=== PATIENT | female | born 1995 | race Hispanic/Latino ===

== ENCOUNTER 2020-09-19 19:10 | Observation (INO) | payer MEDICAID, OTHER ==
[2020-09-19] MEDS ORDERED: LACTATED RINGERS 1,000 ML IV ONE (19:44)
[2020-09-19 20:01] LABS: Bilirubin,Urine NEG (Negative); Blood,Urine NEG (Negative); Color,Urine Yellow (Yellow); Mucus,Urine 3+ /HPF
[2020-09-19 20:33] LABS: Amphetamine Screen,Urine Negative; Benzodiazepines Screen,Urine Negative; Cannabinoid Screen,Urine Negative; Cocaine Screen,Urine Negative; Methadone Screen,Urine Negative; Opiate Screen,Urine Negative
[2020-09-19] MEDS ORDERED: cefTRIAXone/NS 1 GM/50 ML 1 GM/50 ML BAG IV ONE (21:27)
[2020-09-19] MEDS ORDERED: DOCUSATE SODIUM 100 MG CAP PO ONE (22:15)
[2020-09-19 22:41] LABS: Hematocrit 31.6 % (30.3-42.9); Hemoglobin 10.4 gm/dl (10.1-14.3); Mean Corpuscular HGB Conc 33 % (30-34); Mean Corpuscular Volume 77 fl (79-97); Platelet Count 233 K/mm3 (140-440); Red Cell Distribution Width 13.4 % (13.2-15.2)
[2020-09-19 22:51] LABS: Alanine Aminotransferase 6 units/L (7-56); Blood Urea Nitrogen 6 mg/dL (7-17); Calcium 8.5 mg/dL (8.4-10.2); Hemolysis Index 54
[2020-09-19 22:55] LABS: BUN/Creatinine Ratio 15
[2020-09-19] MEDS ORDERED: LACTATED RINGERS 1,000 ML ONE (23:42)
[2020-09-19] MEDS ORDERED: ACETAMINOPHEN 325 MG TAB PO PRN (23:55)
--- NOTE | 2020-09-20 00:10 | History and Physical Report ---
History of Present Illness Date of examination: 09/20/20 Chief complaint: Admitted for 23 hour observation due to slightly low RACHAEL at 36 weeks gestation. Plan to repeat US in 23 hours and plan is for continuous EFM. Patient also has a probable UTI and is receiving Rocephin. History of present illness: 25 year old female presents to triage with complaint of suprapubic discomfort (denies flank pain). Patient was found not to be in labor. She was started on Rocephin in triage for possible UTI and on Colace for constipation. Patient receives care at [facility] and records are not available. But was able to access some records via computer. LMP 03/2020. EDC 10/17/2020 (by US at 9.5 weeks gestation). significant for the following: irregular FHR (was referred to [facility] per record but patient states she never went and denies any recent problems with irregular FHR), trichomonas (treated and JACK negative), varicella nonimmne, low TSH, vitamin D deficiency (supplemented with vitamin D), and UTI (treated). labs are as follows: O+, antibody screen negative, pap smear negative, rubella immune, RPR nonreactive, hepatitis B surface antigen negative, HIV negative, gonorrhea negative, chlamydia negative, trichomonas positive/negative, AFP negative, panorama low risk, GBS unknown. Past History Past Medical History: no pertinent history Past Surgical History: other (neck surgery as a child (pt. 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 denies: abnormal PAP smear, chlamydia, gonorrhea, hepatitis B, hepatitis C, herpes, HIV, syphilis Family/Genetic History: none Social history: single, lives with family, full code. denies: smoking, alcohol abuse, prescription drug abuse, IV drug use - Obstetrical History Expected Date of Delivery: 10/17/20 Actual Gestation: 36 Week(s) 1 Day(s) : 2 Para: 1 Hx # Term Pregnancies: 1 Number of Pregnancies: 0 Spontaneous Abortions: 0 Induced : 0 Number of Living Children: 1 Medications and Allergies Allergies Allergy/AdvReac Type Severity Reaction Status Date / Time squash Allergy Rash Verified 08/19/16 21:44 Home Medications Medication Instructions Recorded Confirmed Last Taken Type No Known Home Medications [No 08/20/16 08/20/16 Unknown History Reported Home Medications] Active Meds: Active Medications Acetaminophen (Acetaminophen 325 Mg Tab) 650 mg PO Q4H PRN PRN Reason: Pain MILD(1-3)/Fever >100.5/CALVILLO Docusate Sodium (Docusate Sodium 100 Mg Cap) 100 mg PO BID FRANCIE Ceftriaxone Sodium (Rocephin/Ns 1 Gm/50 Ml) 1 gm in 50 mls @ 100 mls/hr IV Q24H FRANCIE; Protocol Multivitamins/Iron/Calcium ( [id number] Fumarate-Folic Acid Vit Tab) 1 each PO QDAY FRANCIE Review of Systems All systems: negative (suprapubic pain, constipation, nausea) - Vital Signs Vital signs: Vital Signs Temp Pulse Resp BP Pulse Ox 99.2 F 109 H 16 133/81 99 09/19/20 19:31 09/19/20 19:31 09/19/20 19:31 09/19/20 19:31 09/19/20 19:31 Temp Pulse Resp BP Pulse Ox 98.8 F 82 16 135/83 100 09/19/20 23:47 09/19/20 23:47 09/19/20 19:31 09/19/20 23:47 09/19/20 23:30 No CVAT bilaterally. - Physical Exam Abdomen: Positive: normal appearance, soft. Negative: distention, tenderness, guarding, rigidity Genitourinary (Female): Positive: normal external genitalia, normal perenium. Negative: perineal/vulvar lesions Vagina: Positive: normal moisture Uterus: Positive: enlarged. Negative: tender Anus/Rectum: Positive: normal perianal skin Extremities: Positive: normal. Negative: tenderness, edema - Obstetrical FHR: category 1 Uterine Contraction Monitor Mode: External Cervical Dilatation: 1 Cervical Effacement Percentage: 50 station: -3 Uterine Contraction Pattern: Irregular Uterine Contraction Intensity: Mild Results Result Diagrams: 09/19/20 22:25 09/19/20 22:25 Abnormal lab results 09/19/20 09/19/20 09/19/20 Range/Units 19:46 22:25 22:25 MCV 77 L (79-97) fl MCH 25 L (28-32) pg Sodium 135 L (137-145) mmol/L Chloride 107.6 H (98-107) mmol/L Carbon Dioxide 18 L (22-30) mmol/L BUN 6 L (7-17) mg/dL Creatinine 0.4 L (0.6-1.2) mg/dL ALT 6 L (7-56) units/L Lactate Dehydrogenase (91-180) units/L Albumin 3.0 L (3.9-5) g/dL Ur Specific [place] 1.032 H (1.003-1.030) Urine WBC (Auto) 63.0 H (0.0-6.0) /HPF 09/19/20 Range/Units 22:25 MCV (79-97) fl MCH (28-32) pg Sodium (137-145) mmol/L Chloride (98-107) mmol/L Carbon Dioxide (22-30) mmol/L BUN (7-17) mg/dL Creatinine (0.6-1.2) mg/dL ALT (7-56) units/L Lactate Dehydrogenase 233 H (91-180) units/L Albumin (3.9-5) g/dL Ur Specific [place] (1.003-1.030) Urine WBC (Auto) (0.0-6.0) /HPF All other labs normal. Assessment and Plan A: at 36 weeks, 1 day gestation. RACHAEL low for gestational age. UTI. Constipation. P: Admit for 23 hour observation. Continuous EFM. Repeat RACHAEL in 23 hours. IV Rocephin for UTI. Urine culture. Colace for constipation. Hydration.
--- NOTE | 2020-09-20 00:53 | Ultrasound Report ---
ULTRASOUND OBSTETRIC LIMITED ULTRASOUND BIOPHYSICAL PROFILE INDICATION / CLINICAL INFORMATION: RACHAEL, check placenta. Clinical Gestational Age (GA) in weeks, days: 36 weeks 0 days TECHNIQUE: Transabdominal. COMPARISON: None available. FINDINGS: BREATHING MOVEMENT = 2 GROSS BODY MOVEMENT = 2 TONE = 2 QUALITATIVE AMNIOTIC FLUID VOLUME = 2 TOTAL BIOPHYSICAL SCORE = 8/8 HEART RATE (beats per minute): 155 AMNIOTIC FLUID INDEX (cm) = 6.3 cm (normal = 7-24 cm) PRESENTATION: Cephalic. ADDITIONAL FINDINGS: Placenta is located anterior/fundal without evidence of abruption, grade 0-1 IMPRESSION: 1. Biophysical Score = 8/8 2. Single viable IUP in a cephalic presentation. 3. RACHAEL is 6.3 cm. This is borderline oligohydramnios. Signer Name: Belinda Chavez MD Signed: 09/20/2020 12:49 AM Workstation Name: [id number]
[2020-09-20] MEDS: ONDANSETRON 4 MG/2 ML INJ IV PRN ×2 (03:59→10:18)
[2020-09-20] MEDS ORDERED: LACTATED RINGERS 1,000 ML ONE (08:53)
--- NOTE | 2020-09-20 09:58 | Event Note ---
Date: 09/20/20 FHR tracing category 1. No contractions noted. Coronavirus test was done this morning. Patient has not had any further nausea or vomiting. Also has not complained of headache or sore throat. Urine C&S and flu swab results pending.
[2020-09-20] MEDS ORDERED: cefTRIAXone/NS 1 GM/50 ML 1 GM/50 ML BAG IV SCH (10:00)
[2020-09-20] MEDS ORDERED: DOCUSATE SODIUM 100 MG CAP PO SCH (10:00)
[2020-09-20] MEDS ORDERED: PRENATAL VIT27-FE FUMARATE-FOLIC ACID VIT TAB PO SCH (10:00)
--- NOTE | 2020-09-20 11:47 | Event Note ---
Date: 09/20/20 Plan to repeat US for borderline oligo if 6.3 or greater, plan to d/c home with [facility] follow up Tiff Clement MD
[2020-09-20 12:03] VITALS: BP 124/72
--- NOTE | 2020-09-20 13:32 | Ultrasound Report ---
OBSTETRICAL ULTRASOUND. HISTORY: Intrauterine . Evaluate RACHAEL. FINDINGS: A single, viable intrauterine in the cephalic position has heart tones of 1 41 bpm. Amniotic fluid index is normal measuring 9.1. The largest quadrant is quadrant 1 measuring 4.2 cm. Signer Name: Haresh Muñiz MD Signed: 09/20/2020 1:27 PM Workstation Name: [id number] [place] [place]
--- NOTE | 2020-09-20 14:11 | Event Note ---
Date: 09/20/[address] Clement cleared patient for discharge. Spoke with patient and informed her she will need follow up with [facility]; advised patient she must go to [facility] office tomorrow to be seen and to be referred to [facility]. Patient states she will go to [facility] office tomorrow. Patient is to perform daily movement counting and to increase her intake of water. Patient voiced understanding. See discharge summary.
--- NOTE | 2020-09-20 14:15 | Discharge Summary ---
Providers - Providers Date of Admission: 09/19/20 23:55 Date of discharge: 09/20/20 Attending physician: CARITO COLLAZO MD Primary care physician: CARITO COLLAZO MD Hospitalization Reason for admission: other (36 weeks, 1 day gestation with borderline low RACHAEL (has now returned to normal).) Procedure: other (Ultrasound) Discharge diagnosis: other ( at 36 weeks, 1 day gestation. Normal RACHAEL.) Pertinent studies: Labs, ultrasound. Hospital course: Stable hospital course. Condition at discharge: Good Disposition: DC-01 TO HOME OR SELFCARE - Discharge Diagnoses (1) Status: Acute (2) Normal obstetric ultrasound scan Status: Acute Plan - Provider Discharge Summary Activity: routine, no sex for 6 weeks, no heavy lifting 4 weeks, no strenuous exercise Diet: routine Instructions: routine Additional instructions: Count movements daily at home. Drink more water (6-8 cups per day). Go to [facility] office tomorrow (09/21/2020) and be seen by provider to obtain a referral to [facility] (perinatologist). - Follow up plan Follow up: CARITO COLLAZO MD [Primary Care Provider] - 09/21/20
== END 2020-09-20 14:40 | disposition home or self-care (01) ==
LOC: TRG 19:10 → APU 19:47 → LD 23:55 → TRG 23:55
PROVIDERS: ADMIT Obstetrics & Gynecology; ATTEND Obstetrics & Gynecology
DX: O42.913 Preterm premature rupture of membranes, unspecified as to length of time between rupture and onset of labor, third trimester (principal); Z20.828 Contact with and (suspected) exposure to other viral communicable diseases; O23.43 Unspecified infection of urinary tract in pregnancy, third trimester; K59.00 Constipation, unspecified; Z3A.36 36 weeks gestation of pregnancy; Z79.899 Other long term (current) drug therapy
CPT/HCPCS: 36415; 76815; 76819; 80053; 80307; 81001; 83615; 85027; 86850; 86900; 86901; 87086; 96361; 96365; 96366; 96375; 96376; G0378; J0696; J2405; J7120; U0003

== ENCOUNTER 2020-09-23 16:03 | Inpatient (IN) | payer MEDICAID ==
[2020-09-23 17:15] LABS: Bilirubin,Urine NEG (Negative); Blood,Urine NEG (Negative); Color,Urine Yellow (Yellow); Mucus,Urine FEW /HPF; Protein,Urine <15 mg/dL mg/dL (Negative)
[2020-09-23 17:28] LABS: Hematocrit 32.3 % (30.3-42.9); Hemoglobin 10.5 gm/dl (10.1-14.3); Mean Corpuscular HGB Conc 32 % (30-34); Mean Corpuscular Volume 77 fl (79-97); Platelet Count 232 K/mm3 (140-440); Red Cell Distribution Width 13.6 % (13.2-15.2)
[2020-09-23] MEDS: LACTATED RINGERS 1,000 ML IV SCH ×2 (17:44→23:30)
[2020-09-23 17:55] LABS: Alanine Aminotransferase < 5 units/L (7-56)
[2020-09-23 18:25] LABS: Uric Acid 4.4 mg/dL (3.5-7.6)
[2020-09-23] MEDS ORDERED: LACTATED RINGERS 1,000 ML IV SCH (21:45)
[2020-09-24] MEDS ORDERED: FAMOTIDINE 20 MG/2 ML INJ IV ONE (00:16)
--- NOTE | 2020-09-24 07:37 | Ultrasound Report ---
ULTRASOUND OBSTETRIC LIMITED ULTRASOUND BIOPHYSICAL PROFILE INDICATION / CLINICAL INFORMATION: bpp/linda. Clinical Gestational Age (GA) in weeks, days: 36 weeks 4 days TECHNIQUE: Transabdominal. COMPARISON: 09/19/2020 FINDINGS: BREATHING MOVEMENT = 0 GROSS BODY MOVEMENT = 2 TONE = 0 QUALITATIVE AMNIOTIC FLUID VOLUME = 2 TOTAL BIOPHYSICAL SCORE = 4/8 HEART RATE (beats per minute): 138 AMNIOTIC FLUID INDEX (cm) = 13.8 (normal = 7-24 cm) PRESENTATION: Cephalic. ADDITIONAL FINDINGS: None. IMPRESSION: 1. Biophysical Score = 4/8 . On 09/19/2020 the score was 8/8 2. Since the prior study, amniotic fluid volume has increased to a normal level. Signer Name: Belinda Chavez MD Signed: 09/24/2020 2:10 AM Workstation Name: [id number]
--- NOTE | 2020-09-24 09:51 | History and Physical Report ---
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 Pt admitted to active and denied logan, visual problems, or epigastric pain. She initiated her pnc at [facility] at 8 wks. She was unsure of her LMP r/t continuous menses. Pt was co managed by [facility] for irreg FHT. Other preg complications have included a low TSH of 0.392, + trich with a neg JACK, varicella NI, and Vit D def. Pt's GBS is unknown. Upon arrival pt's BPP was 4/8 and nitrazine was neg. Her b/ps were 120-130s/80-100. Pt's RACHAEL was 13.8cm and pt was admitted overnight for an observation. Today pt's b/ps are pretty much unchanged. BPP today is 8/8 with an RACHAEL of 9.2cm. Yesterday's RACHAEL is believed to be an outlier because pt's Fluid level has been on the low normal side 6.3cm on 09/19 and 9.3cm on 09/20. Her cervix was closed upon admission to triage yesterday, and she is now 2/50%/-3 and norm q 6-9 min.Therefore, pt is being admitted r/t non reassuring status, possible srom, and early labor. Dr Clement was consulted and agreed with plan. 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 Family/Genetic History: none Social history: no significant social history, full code - Obstetrical History Expected Date of Delivery: 10/17/20 Actual Gestation: 36 Week(s) 5 Day(s) : 2 Para: 1 Hx # Term Pregnancies: 1 Number of Pregnancies: 0 Number of Living Children: 1 Medications and Allergies Allergies Allergy/AdvReac Type Severity Reaction Status Date / Time squash Allergy Rash Verified 08/19/16 21:44 Home Medications Medication Instructions Recorded Confirmed Last Taken Type No.137/Iron/Folic Acd 1 tab PO DAILY 09/24/20 09/24/20 09/23/20 13:00 History [[facility] Vitamins Tablet] Active Meds: Active Medications Lactated Ringer's (Lactated Ringers) 1,000 mls @ 125 mls/hr IV DIRECT FRANCIE Last Admin: 09/23/20 23:30 Dose: 125 mls/hr Documented by: Multivitamins/Iron/Calcium ( [id number] Fumarate-Folic Acid Vit Tab) 1 each PO DAILY FRANCIE Review of Systems All systems: negative Eyes: deferred Ears, nose, mouth and throat: deferred Breasts: normal - Vital Signs Vital signs: Vital Signs Pulse BP 74 127/87 09/23/20 16:29 09/23/20 16:29 Temp Pulse Resp BP Pulse Ox 98.3 F 80 18 129/81 99 09/24/20 08:19 09/24/20 09:42 09/24/20 08:19 09/24/20 08:58 09/24/20 09:42 - Physical Exam Breasts: Positive: normal Abdomen: Positive: normal appearance, soft, normal bowel sounds, other (GRAVID) Genitourinary (Female): Positive: normal external genitalia, normal perenium Vulva: both: normal Vagina: Positive: normal moisture Uterus: Positive: enlarged, normal contour, other (GRAVID) Adnexa: both: normal Anus/Rectum: Positive: normal perianal skin Extremities: Positive: normal - Obstetrical FHR: auscultation normal, category 1 Uterine Contraction Monitor Mode: External Cervical Dilatation: 2 Cervical Effacement Percentage: 50 station: -3 Uterine Contraction Frequency (min): 6-9 Uterine Contraction Pattern: Regular Uterine Tone Measurement Phase: Resting Uterine Contraction Intensity: Mild Results Result Diagrams: 09/24/20 10:45 09/23/20 17:15 Abnormal lab results 09/23/20 09/23/20 09/23/20 Range/Units 17:00 17:15 17:15 MCV 77 L (79-97) fl MCH 25 L (28-32) pg Creatinine 0.5 L (0.6-1.2) mg/dL ALT < 5 L (7-56) units/L Urine WBC (Auto) 34.0 H (0.0-6.0) /HPF All other labs normal. Assessment and Plan A: IUP@ 36.5 wks with non reassuring status Questionable SROM PTL GBS unknown Varicella NI Low TSH p: Admit to L&D Start Low dose Pitocin Continuous monitoring GBS prophylaxis start now Pain med/Epidural prn Offer Varicella vaccine pp Recheck TSH level Anticipate progress - Patient Problems (1) contractions Current Visit: Yes Status: Acute (2) GBS screening not performed Current Visit: Yes Status: Acute (3) Maternal varicella, non-immune Current Visit: Yes Status: Acute
[2020-09-24] MEDS ORDERED: [UNRECOGNIZED DRUG - REMARK] PO SCH (10:00)
[2020-09-24] MEDS ORDERED: MINERAL OIL 30 ML ORAL LIQD PO PRN (10:07)
[2020-09-24] MEDS ORDERED: TERBUTALINE 1 MG/1 ML INJ SUB-Q PRN (10:07)
[2020-09-24] MEDS ORDERED: LIDOCAINE (2%) 20 MG/1 ML VIAL 20 ML MDV INFILTRATI ONE (10:07)
[2020-09-24] MEDS ORDERED: ePHEDrine SULFATE 50 MG/1 ML INJ IV PRN (10:07)
[2020-09-24] MEDS ORDERED: OXYTOCIN DRIP 30 UNITS/500 ML BAG IV SCH ×2 (11:00)
[2020-09-24] MEDS: PRENATAL VIT27-FE FUMARATE-FOLIC ACID VIT TAB PO SCH (11:15)
[2020-09-24] MEDS: LACTATED RINGERS 1,000 ML IV SCH ×2 (11:15→19:06)
[2020-09-24 11:18] LABS: Hematocrit 28.7 % (30.3-42.9); Hemoglobin 9.2 gm/dl (10.1-14.3); Mean Corpuscular HGB Conc 32 % (30-34); Mean Corpuscular Volume 77 fl (79-97); Platelet Count 210 K/mm3 (140-440); Red Blood Count 3.75 M/mm3 (3.65-5.03); Red Cell Distribution Width 13.8 % (13.2-15.2)
--- NOTE | 2020-09-24 12:26 | Ultrasound Report ---
Limited OB Ultrasound Biophysical profile HISTORY: Evaluate RACHAEL and well-being. TECHNIQUE: Grayscale and color imaging performed. COMPARISON: Ultrasound from yesterday FINDINGS: There is a single viable intrauterine gestation with cephalic presentation and heart rate o f 125 bpm. RACHAEL on today's exam is 7 cm, reported as 13.8 cm yesterday. The heart rate is 125 bpm. On biophysical profile, the fetus received a score of 2 out of 2 for movement, breathing, posture/ton e, and RACHAEL. Total score was 8 out of 8. IMPRESSION: 1. Single viable intrauterine gestation, although the RACHAEL is dropped significantly since yesterday, p reviously 13.8 cm and today 7 cm (which is reported to be low normal). When comparing to the exams fr om 09/20 and 09/19 as well as the exam from yesterday, the RACHAEL yesterday was clearly an outlier. Specifi flash, the RACHAEL on 09/20 was 9.3 cm and on 09/19 was 6.3 cm. In other words, I am unsure if the measureme nts from yesterday were accurate. 2. Normal biophysical profile with a score of 8 out of 8, reported as 4 out of 8 yesterday. Again, th e previous biophysical profile and the ninth was also normal at 8 out of 8. Signer Name: Refugio Ozuna MD Signed: 09/24/2020 12:22 PM Workstation Name: [id number]
[2020-09-24] MEDS ORDERED: AMPICILLIN/NS 2 GM/100 ML 2 GM/100 ML BAG IV ONE (18:00)
[2020-09-24] MEDS ORDERED: fentaNYL 100 MCG/2 ML INJ IV PRN (21:05)
[2020-09-24] MEDS: BUTORPHANOL 2 MG/1 ML INJ IV PRN (21:11)
[2020-09-24] MEDS: AMPICILLIN/NS 1 GM/50 ML 1 GM/50 ML BAG IV SCH (22:05)
[2020-09-25] MEDS: AMPICILLIN/NS 1 GM/50 ML 1 GM/50 ML BAG IV SCH ×2 (02:45→06:31)
[2020-09-25] MEDS: BUTORPHANOL 2 MG/1 ML INJ IV PRN (08:55)
--- NOTE | 2020-09-25 09:10 | Progress Note ---
Assessment and Plan - Patient Problems (1) Encounter for induction of labor Current Visit: Yes Status: Acute Plan to address problem: Continue routine labor orders Continue Pitocin as tolerated per order Epidural as desired Anticipate (2) GBS screening not performed Current Visit: Yes Status: Acute Plan to address problem: Continue GBS prophylaxis Subjective - Subjective Date of service: 09/25/20 Principal diagnosis: IOL; PIH Interval history: See admission H & P Patient reports: movement normal, contractions ("They hurt" requesting epidural), no vaginal bleeding Objective - Vital Signs Vital Signs: Vital Signs - 12hr 09/24/20 09/24/20 09/24/20 21:06 21:11 21:16 Temperature Pulse Rate 86 103 H 107 H Respiratory Rate Blood Pressure O2 Sat by Pulse 99 98 98 Oximetry 09/24/20 09/24/20 09/24/20 21:20 21:21 21:26 Temperature Pulse Rate 100 H 84 85 Respiratory Rate Blood Pressure 132/80 O2 Sat by Pulse 97 95 Oximetry 09/24/20 09/24/20 09/24/20 21:31 21:33 21:36 Temperature Pulse Rate 92 H 71 69 Respiratory Rate Blood Pressure O2 Sat by Pulse 96 94 94 Oximetry 09/24/20 09/24/20 09/24/20 21:41 21:46 21:47 Temperature Pulse Rate 91 H 96 H 82 Respiratory Rate Blood Pressure O2 Sat by Pulse 97 97 94 Oximetry 09/24/20 09/24/20 09/24/20 21:51 21:56 22:01 Temperature Pulse Rate 91 H 95 H 86 Respiratory Rate Blood Pressure O2 Sat by Pulse 96 95 95 Oximetry 09/24/20 09/24/20 09/24/20 22:06 22:11 22:16 Temperature Pulse Rate 68 73 82 Respiratory Rate Blood Pressure O2 Sat by Pulse 96 97 97 Oximetry 09/24/20 09/24/20 09/24/20 22:19 22:21 22:26 Temperature Pulse Rate 87 86 66 Respiratory Rate Blood Pressure 119/82 O2 Sat by Pulse 94 97 95 Oximetry 09/24/20 09/24/20 09/24/20 22:31 22:32 22:36 Temperature Pulse Rate 71 68 70 Respiratory Rate Blood Pressure O2 Sat by Pulse 92 94 97 Oximetry 09/24/20 09/24/20 09/24/20 22:39 22:41 22:44 Temperature Pulse Rate 70 66 72 Respiratory Rate Blood Pressure O2 Sat by Pulse 94 96 92 Oximetry 09/24/20 09/24/20 09/24/20 22:46 22:49 22:51 Temperature Pulse Rate 63 68 66 Respiratory Rate Blood Pressure O2 Sat by Pulse 94 93 93 Oximetry 09/24/20 09/24/20 09/24/20 22:55 22:56 23:00 Temperature Pulse Rate 67 66 68 Respiratory Rate Blood Pressure O2 Sat by Pulse 93 97 93 Oximetry 09/24/20 09/24/20 09/24/20 23:01 23:06 23:11 Temperature Pulse Rate 69 66 64 Respiratory Rate Blood Pressure O2 Sat by Pulse 94 96 94 Oximetry 09/24/20 09/24/20 09/24/20 23:16 23:21 23:23 Temperature Pulse Rate 85 75 88 Respiratory Rate Blood Pressure 125/85 O2 Sat by Pulse 97 100 Oximetry 09/24/20 09/24/20 09/24/20 23:26 23:31 23:36 Temperature Pulse Rate 62 62 65 Respiratory Rate Blood Pressure O2 Sat by Pulse 100 96 96 Oximetry 09/24/20 09/24/20 09/24/20 23:39 23:41 23:45 Temperature Pulse Rate 66 69 64 Respiratory Rate Blood Pressure O2 Sat by Pulse 94 96 94 Oximetry 09/24/20 09/24/20 09/24/20 23:46 23:51 23:56 Temperature Pulse Rate 69 67 68 Respiratory Rate Blood Pressure O2 Sat by Pulse 95 93 90 Oximetry 09/25/20 09/25/20 09/25/20 00:01 00:06 00:11 Temperature Pulse Rate 69 67 65 Respiratory Rate Blood Pressure O2 Sat by Pulse 93 93 92 Oximetry 09/25/20 09/25/20 09/25/20 00:16 00:20 00:21 Temperature 97.7 F Pulse Rate 77 67 Respiratory Rate Blood Pressure O2 Sat by Pulse 93 93 Oximetry 09/25/20 09/25/20 09/25/20 00:22 00:24 00:26 Temperature Pulse Rate 68 73 68 Respiratory Rate Blood Pressure 118/74 O2 Sat by Pulse 90 92 Oximetry 09/25/20 09/25/20 09/25/20 00:31 00:36 00:41 Temperature Pulse Rate 66 79 67 Respiratory Rate Blood Pressure O2 Sat by Pulse 90 92 94 Oximetry 09/25/20 09/25/20 09/25/20 00:42 00:46 00:48 Temperature Pulse Rate 63 67 66 Respiratory Rate Blood Pressure O2 Sat by Pulse 90 92 90 Oximetry 09/25/20 09/25/20 09/25/20 00:51 00:56 01:01 Temperature Pulse Rate 70 58 L 65 Respiratory Rate Blood Pressure O2 Sat by Pulse 100 98 96 Oximetry 09/25/20 09/25/20 09/25/20 01:06 01:11 01:16 Temperature Pulse Rate 64 61 60 Respiratory Rate Blood Pressure O2 Sat by Pulse 96 97 96 Oximetry 09/25/20 09/25/20 09/25/20 01:21 01:26 01:31 Temperature Pulse Rate 66 63 61 Respiratory Rate Blood Pressure 88/53 O2 Sat by Pulse 96 96 99 Oximetry 09/25/20 09/25/20 09/25/20 01:36 01:41 01:46 Temperature Pulse Rate 61 64 64 Respiratory Rate Blood Pressure O2 Sat by Pulse 99 99 98 Oximetry 09/25/20 09/25/20 09/25/20 01:51 01:56 02:01 Temperature Pulse Rate 69 60 75 Respiratory Rate Blood Pressure O2 Sat by Pulse 98 98 98 Oximetry 09/25/20 09/25/20 09/25/20 02:06 02:17 02:18 Temperature Pulse Rate 76 63 48 L Respiratory Rate Blood Pressure O2 Sat by Pulse 98 94 86 Oximetry 09/25/20 09/25/20 09/25/20 02:20 02:22 02:27 Temperature Pulse Rate 63 95 H 66 Respiratory Rate Blood Pressure 131/86 O2 Sat by Pulse 94 96 Oximetry 09/25/20 09/25/20 09/25/20 02:32 02:37 02:42 Temperature Pulse Rate 72 62 79 Respiratory Rate Blood Pressure O2 Sat by Pulse 92 95 95 Oximetry 09/25/20 09/25/20 09/25/20 02:47 02:52 02:57 Temperature Pulse Rate 64 62 67 Respiratory Rate Blood Pressure O2 Sat by Pulse 100 99 99 Oximetry 09/25/20 09/25/20 09/25/20 03:00 03:02 03:07 Temperature 98.6 F Pulse Rate 74 62 Respiratory Rate Blood Pressure O2 Sat by Pulse 98 97 Oximetry 09/25/20 09/25/20 09/25/20 03:12 03:17 03:21 Temperature Pulse Rate 69 66 64 Respiratory Rate Blood Pressure 112/65 O2 Sat by Pulse 97 96 Oximetry 09/25/20 09/25/20 09/25/20 03:22 03:27 03:32 Temperature Pulse Rate 68 66 65 Respiratory Rate Blood Pressure O2 Sat by Pulse 97 97 98 Oximetry 09/25/20 09/25/20 09/25/20 03:37 03:42 03:47 Temperature Pulse Rate 63 65 67 Respiratory Rate Blood Pressure O2 Sat by Pulse 97 96 97 Oximetry 09/25/20 09/25/20 09/25/20 03:52 03:57 04:02 Temperature Pulse Rate 66 65 71 Respiratory Rate Blood Pressure O2 Sat by Pulse 96 96 97 Oximetry 09/25/20 09/25/20 09/25/20 04:07 04:12 04:17 Temperature Pulse Rate 70 69 65 Respiratory Rate Blood Pressure O2 Sat by Pulse 96 97 95 Oximetry 09/25/20 09/25/20 09/25/20 04:21 04:22 04:27 Temperature Pulse Rate 68 69 72 Respiratory Rate Blood Pressure 140/93 O2 Sat by Pulse 93 93 Oximetry 09/25/20 09/25/20 09/25/20 04:32 04:37 04:42 Temperature Pulse Rate 78 72 74 Respiratory Rate Blood Pressure O2 Sat by Pulse 95 93 95 Oximetry 09/25/20 09/25/20 09/25/20 04:47 04:52 04:57 Temperature Pulse Rate 71 72 71 Respiratory Rate Blood Pressure O2 Sat by Pulse 96 95 95 Oximetry 09/25/20 09/25/20 09/25/20 05:02 05:12 05:17 Temperature Pulse Rate 98 H 46 L 77 Respiratory Rate Blood Pressure O2 Sat by Pulse 93 99 100 Oximetry 09/25/20 09/25/20 09/25/20 05:19 05:20 05:22 Temperature Pulse Rate 75 85 81 Respiratory Rate Blood Pressure 131/83 O2 Sat by Pulse 90 93 Oximetry 09/25/20 09/25/20 09/25/20 05:27 05:32 05:37 Temperature Pulse Rate 74 80 69 Respiratory Rate Blood Pressure O2 Sat by Pulse 98 98 98 Oximetry 09/25/20 09/25/20 09/25/20 05:42 05:46 05:47 Temperature Pulse Rate 90 88 94 H Respiratory Rate Blood Pressure O2 Sat by Pulse 97 89 93 Oximetry 09/25/20 09/25/20 09/25/20 05:52 05:57 06:02 Temperature Pulse Rate 101 H 103 H 99 H Respiratory Rate Blood Pressure O2 Sat by Pulse 96 96 97 Oximetry 09/25/20 09/25/20 09/25/20 06:07 06:12 06:17 Temperature Pulse Rate 93 H 79 97 H Respiratory Rate Blood Pressure O2 Sat by Pulse 98 97 98 Oximetry 09/25/20 09/25/20 09/25/20 06:21 06:22 06:27 Temperature Pulse Rate 123 H 140 H 108 H Respiratory Rate Blood Pressure 133/100 O2 Sat by Pulse 96 97 Oximetry 09/25/20 09/25/20 09/25/20 06:32 06:37 06:42 Temperature Pulse Rate 115 H 96 H 65 Respiratory Rate Blood Pressure O2 Sat by Pulse 98 95 97 Oximetry 09/25/20 09/25/20 09/25/20 06:53 06:56 06:58 Temperature Pulse Rate 94 H 85 84 Respiratory Rate Blood Pressure 117/88 O2 Sat by Pulse 92 99 Oximetry 09/25/20 09/25/20 09/25/20 07:03 07:08 07:13 Temperature Pulse Rate 72 64 63 Respiratory Rate Blood Pressure O2 Sat by Pulse 97 97 98 Oximetry 09/25/20 09/25/20 09/25/20 07:18 07:21 07:23 Temperature Pulse Rate 65 60 99 H Respiratory Rate Blood Pressure 113/76 O2 Sat by Pulse 97 98 Oximetry 09/25/20 09/25/20 09/25/20 07:28 07:33 07:36 Temperature 97.7 F Pulse Rate 68 67 Respiratory 20 Rate Blood Pressure O2 Sat by Pulse 97 97 Oximetry 09/25/20 09/25/20 09/25/20 07:38 07:43 07:48 Temperature Pulse Rate 69 66 77 Respiratory Rate Blood Pressure O2 Sat by Pulse 95 95 98 Oximetry 09/25/20 09/25/20 09/25/20 07:49 07:53 07:58 Temperature Pulse Rate 75 66 67 Respiratory Rate Blood Pressure 100/60 O2 Sat by Pulse 97 97 Oximetry 09/25/20 09/25/20 09/25/20 08:03 08:08 08:13 Temperature Pulse Rate 64 63 69 Respiratory Rate Blood Pressure O2 Sat by Pulse 97 97 97 Oximetry 09/25/20 09/25/20 09/25/20 08:18 08:22 08:23 Temperature Pulse Rate 61 67 68 Respiratory Rate Blood Pressure 119/75 O2 Sat by Pulse 98 98 Oximetry 09/25/20 09/25/20 08:28 08:55 Temperature Pulse Rate 73 Respiratory 20 Rate Blood Pressure O2 Sat by Pulse 98 Oximetry - Exam Breasts: deferred Cardiovascular: Regular rate Lungs: Normal air movement FHR: category 1 Uterine Contraction Monitor Mode: External Cervical Dilatation: 6 (per RN) Cervical Effacement Percentage: 80 station: -2 Uterine Contraction Frequency (min): 3-4 Uterine Contraction Pattern: Irregular Uterine Tone Measurement Phase: Resting Uterine Contraction Intensity: Moderate Deep Tendon Reflex Grade: Normal +2 - Labs Labs: Abnormal Labs 09/23/20 09/23/20 09/23/20 17:00 17:15 17:15 Hgb Hct MCV 77 L MCH 25 L Creatinine 0.5 L ALT < 5 L Urine WBC (Auto) 34.0 H 09/24/20 10:45 Hgb 9.2 L Hct 28.7 L MCV 77 L MCH 25 L Creatinine ALT Urine WBC (Auto) Laboratory Results - last 24 hr 09/24/20 09/24/20 09/24/20 10:45 10:50 14:44 WBC 4.9 RBC 3.75 Hgb 9.2 L Hct 28.7 L MCV 77 L MCH 25 L MCHC 32 RDW 13.8 Plt Count 210 TSH 0.845 Coronavirus (PCR) Blood Type O POSITIVE Antibody Screen Negative 09/24/20 Unknown WBC RBC Hgb Hct MCV MCH MCHC RDW Plt Count TSH Coronavirus (PCR) Negative Blood Type Antibody Screen
[2020-09-25] MEDS: LACTATED RINGERS 1,000 ML IV SCH (09:30)
[2020-09-25] MEDS: PRENATAL VIT27-FE FUMARATE-FOLIC ACID VIT TAB PO SCH (09:41)
[2020-09-25] MEDS ORDERED: LIDOCAINE (2%) 20 MG/1 ML VIAL 20 ML MDV INFILTRATI ONE (10:02)
--- NOTE | 2020-09-25 11:05 | Progress Note ---
Labor Epidural - Labor Epidural Start Time: 10:14 Stop Time: 10:24 Performed by:: SACHI CABAN Procedure: Patient is requesting epidural for labor pain. H&P, and labs reviewed. Procedure explained, questions answered, consent obtained. Patient in sitting position with blood pressure cuff and pulse ox on and working. Timeout performed immediately before start of procedure. Sterile betadine prep/drape. 3 mL 1% lidocaine skin wheal at L[3]-L[4]. 18-gauge Omnirelianttead epidural needle advanced to [id number] with saline at [7] cm. 27-gauge spinal needle advanced until clear, free-flowing CSF. Intrathecal bupivacaine 0.75% 0.5 ml administered and needle removed. Epidural catheter advanced to [12] cm, negative aspiration for blood and csf, negative test dose 3 ml 1.5% lidocaine with epinephrine. Sterile steri-strips and tegaderm applied, followed by tape reinforcement. Patient tolerated procedure well.
--- NOTE | 2020-09-25 11:05 | Anesthesia Consultation ---
Anesthesia Consult and Med Hx Date of service: 09/25/20 - Airway Anesthetic Teeth Evaluation: Good ROM Head & Neck: Adequate Mental/Hyoid Distance: Adequate Mallampati Class: Class II Intubation Access Assessment: Probably Good - Pulmonary Exam CTA: Yes - Cardiac Exam Cardiac Exam: RRR - Pre-Operative Health Status ASA Pre-Surgery Classification: ASA2 Proposed Anesthetic Plan: Epidural - Pulmonary Hx Asthma: No COPD: No Hx Pneumonia: No - Cardiovascular System Hx Hypertension: No - Central Nervous System Hx Seizures: No Hx Psychiatric Problems: No - Endocrine Hx Renal Disease: No Hx End Stage Renal Disease: No Hx Hypothyroidism: No Hx Hyperthyroidism: No - Hematic Hx Anemia: No Hx Sickle Cell Disease: No - Other Systems Hx Alcohol Use: No
--- NOTE | 2020-09-25 11:27 | Procedure Note ---
OB Delivery Note - Delivery Date of Delivery: 09/25/20 (1050) Surgeon: RACHEL JASSO (CNM) Estimated blood loss: 300cc - Vaginal Delivery presentation: vertex Delivery position: OA (BAMBI) Intrapartum events: none Delivery induction: oxytocin Delivery augmentation: rupture of membranes (SROM @ 0945, clear fluids) Delivery monitor: external FHT, external uterine Route of delivery: Delivery placenta: spontaneous (1053, [place], disposed per hospital policy) Delivery cord: other (Cord around righ wrist, reduced at perineum) Episiotomy: none Delivery laceration: 1st degree (perineum, repaired) Delivery repair: vicryl (3.0 - SH) Anesthesia: epidural Delivery comments: of viable, crying female infant placed directly to maternal abdomen. Cord double clamped and cut by myself after cessation of pulsation. Placenta spontaneously delivered, disposed. Uterus firm @ U-3, hemostasis maintained. Perineum with 1st degree laceration, repaired. Mother and baby safe, stable and left in care of RN. - A at 1 minute: 8 at 5 minutes: 9 Infant Gender: Female (Weight: 2628 gms (5lbs 13ozs) 17.5 inches)
[2020-09-25] MEDS ORDERED: ePHEDrine SULFATE 50 MG/1 ML INJ IV PRN (11:30)
[2020-09-25] MEDS ORDERED: LANOLIN/ZINC/DIMETHICONE (LANSINOH) 7 GM TP PRN (11:30)
[2020-09-25] MEDS ORDERED: NALOXONE 2 MG/2 ML INJ IV PRN (11:30)
[2020-09-25] MEDS ORDERED: oxyCODONE /ACETAMINOPHEN 5-325MG TAB PO PRN (12:00)
[2020-09-25] MEDS ORDERED: ONDANSETRON 4 MG/2 ML INJ IV PRN (12:00)
[2020-09-25] MEDS ORDERED: PROMETHAZINE 25 MG TAB PO PRN (12:00)
[2020-09-25] MEDS ORDERED: WITCH HAZEL/ GLYCERIN PAD TP PRN (12:00)
[2020-09-25] MEDS ORDERED: diphenhydrAMINE 25 MG CAP PO PRN (12:00)
[2020-09-25] MEDS ORDERED: fentaNYL-BUPIV 2 MCG/ML-0.125% 200 MCG/100 ML BAG EPIDURAL SCH (12:00)
[2020-09-25] MEDS: IBUPROFEN 600 MG TAB PO SCH ×2 (16:24→23:33)
[2020-09-25] MEDS ORDERED: MAGNESIUM HYDROXIDE (MOM) ORAL LIQD UDC PO PRN (22:00)
[2020-09-25 23:54] LABS: Hematocrit 26.8 % (30.3-42.9); Hemoglobin 8.5 gm/dl (10.1-14.3)
[2020-09-26] MEDS: FERROUS SULFATE 325 MG TAB PO SCH ×2 (09:31→21:51)
--- NOTE | 2020-09-26 09:55 | Post Anesthesia Evaluation ---
- Post Anesthesia Evaluation Patient Participated: Yes Airway Patent: Yes Stable Respiratory Function: Yes Nausea/Vomiting: No Temp > 96.8F: Yes Pain Manageable: Yes Adequeate Hydration: Yes Anesthesia Complications: No Block Receding Appropriately: Yes
[2020-09-26] MEDS: IBUPROFEN 600 MG TAB PO SCH ×2 (12:04→19:50)
--- NOTE | 2020-09-26 15:58 | Progress Note ---
Assessment and Plan A: day 1 S/P . Anemia. P: Supplement with oral iron. Anticipate discharge home tomorrow if patient is still doing well. Subjective - Subjective Date of service: 09/26/20 Principal diagnosis: day 1 S/P Patient reports: appetite normal, voiding normally, pain well controlled, flatus, ambulating normally, no dizzy ambulation, no nauseated [place]: doing well Objective - Vital Signs Latest vital signs: Vital Signs Temp Pulse Resp BP BP Pulse Ox 09/26/20 08:29 98.0 F 94 H 18 124/87 100 09/26/20 00:27 98.4 F 93 H 18 106/70 95 09/25/20 23:33 18 09/25/20 22:29 98.1 F 103 H 18 105/64 98 09/25/20 16:40 98.6 F 94 H 18 121/81 99 Intake and Output 09/25/20 09/26/20 09/26/20 23:59 07:59 15:59 Intake Total 720 360 240 Output Total 300 Balance 420 360 240 Intake: Oral 240 240 240 Intake, Free Water 480 120 Output: Urine 300 Void 300 Other: Total, Intake Amount 240 240 240 Total, Output Amount 300 # Voids Void 1 1 - Exam Cardiovascular: Present: Regular rate Lungs: Present: Clear to auscultation Abdomen: Present: normal appearance, soft, normal bowel sounds. Absent: distention, tenderness, guarding, rigidity Uterus: Present: normal, firm, fundal height below umbilicus. Absent: bogginess, tenderness Extremities: Present: normal. Absent: tenderness, edema - Labs Labs: Abnormal lab results 09/25/20 Range/Units 23:17 Hgb 8.5 L (10.1-14.3) gm/dl Hct 26.8 L (30.3-42.9) %
[2020-09-27] MEDS: IBUPROFEN 600 MG TAB PO SCH (06:27)
[2020-09-27 08:41] VITALS: BP 127/76
--- NOTE | 2020-09-27 14:59 | Progress Note ---
Assessment and Plan A: day 2 S/P . Anemia. P: Discharge patient home today. Discussed with patient discharge instructions and warning signs. Advised patient to rest at home; advised her to avoid lifting, housework, intercourse, driving. Advised patient to continue to take her vitamins and iron supplements at home. Advised patient to follow up at [facility] office tomorrow 09/28/2020 for a BP check. Patient voiced understanding of all instructions. Subjective - Subjective Date of service: 09/27/20 Principal diagnosis: day 2 S/P Interval history: Patient insists on going home today. Patient denies headache, visual disturbance, chest pain, shortness of breath, nausea or vomiting, leg pain, heavy bleeding, or any other problems. Patient agrees to return to [facility] office tomorrow 09/28/2020 for a BP check. Patient reports: appetite normal, voiding normally, pain well controlled, flatus, ambulating normally, no dizzy ambulation, no nauseated : doing well Objective - Vital Signs Latest vital signs: Vital Signs Temp Pulse Resp BP BP Pulse Ox 09/27/20 07:55 98.1 F 67 17 127/76 98 09/27/20 01:35 97.7 F 75 16 111/69 98 09/26/20 17:01 98.4 F 72 18 132/91 99 Intake and Output 09/26/20 09/27/20 09/27/20 23:59 07:59 15:59 Intake Total 340 260 Balance 340 260 Intake: Oral 240 Intake, Free Water 100 260 Other: Total, Intake Amount 240 # Voids Void 2 1 - Exam Cardiovascular: Present: Regular rate Lungs: Present: Clear to auscultation Abdomen: Present: normal appearance, soft. Absent: distention, tenderness, guarding, rigidity Uterus: Present: normal, firm, fundal height below umbilicus. Absent: bogginess, tenderness Extremities: Present: normal. Absent: tenderness, edema
--- NOTE | 2020-09-27 15:02 | Discharge Summary ---
Providers - Providers Date of Admission: 09/23/20 21:41 Date of discharge: 09/27/20 Attending physician: CARITO COLLAZO MD Primary care physician: CARITO COLLAZO MD Hospitalization Reason for admission: other (augmentation of labor) Delivery: Episiotomy: none Laceration: 1st degree Other procedures: none complications: none Discharge diagnosis: IUP at term delivered [place] baby: female Pertinent studies: Labs Hospital course: Stable hospital course Condition at discharge: Good Disposition: [place]-01 TO HOME OR SELFCARE - Discharge Diagnoses (1) Term delivered Status: Acute (2) Anemia Status: Acute Plan - Provider Discharge Summary Activity: routine, no sex for 6 weeks, no heavy lifting 4 weeks, no strenuous exercise Diet: routine Instructions: routine Additional instructions: Continue taking your vitamins and iron supplements at home. Follow up at [facility] tomorrow 09/28/2020 for a BP check. Call your doctor immediately for: * Fever > 100.5 * Heavy vaginal bleeding ( >1 pad per hour) * Severe persistent headache * Shortness of breath * Reddened, hot, painful area to leg or breast - Follow up plan Follow up: CARITO COLLAZO MD [Primary Care Provider] - 09/28/20 Forms: [facility] Discharge Summary
== END 2020-09-27 15:28 | disposition home or self-care (01) | DRG 775 ==
LOC: TRG 16:03 → APU 16:05 → LD 21:41 → TRG 21:41 → OBSVTOIN 21:41 → OB 09-25 13:44
PROVIDERS: ADMIT Obstetrics & Gynecology; ATTEND Obstetrics & Gynecology
PROC: 10E0XZZ Delivery of Products of Conception, External Approach (ICD-10-PCS; principal; 2020-09-25)
PROC: 3E033VJ Introduction of Other Hormone into Peripheral Vein, Percutaneous Approach (ICD-10-PCS; 2020-09-25)
PROC: 3E0R3BZ Introduction of Anesthetic Agent into Spinal Canal, Percutaneous Approach (ICD-10-PCS; 2020-09-25)
PROC: 00HU33Z Insertion of Infusion Device into Spinal Canal, Percutaneous Approach (ICD-10-PCS; 2020-09-25)
PROC: 0HQ9XZZ Repair Perineum Skin, External Approach (ICD-10-PCS; 2020-09-25)
DX: O99.02 Anemia complicating childbirth (principal); O70.0 First degree perineal laceration during delivery; Z20.822 Contact with and (suspected) exposure to COVID-19; Z3A.36 36 weeks gestation of pregnancy; Z37.0 Single live birth
CPT/HCPCS: 36415; 76815; 76819; 81001; 82565; 83615; 84112; 84443; 84450; 84460; 84550; 85014; 85018; 85027; 86850; 86900; 86901; 87086; G0378; J0290; J0595; J2590; J3010; J7120; U0003